=== PATIENT | male | born 1995 | race Two or more races ===

== ENCOUNTER 2024-08-19 20:11 | Inpatient (IN) | payer OTHER ==
[2024-08-19 22:03] VITALS: BMI 24.0
[2024-08-19] MEDS ORDERED: IBUPROFEN 400 MG TABLET (FP) PO PRN (22:31)
[2024-08-19] MEDS ORDERED: MAGNESIUM HYDROX 2400MG/30ML ORAL SUSPENSION 30 ML CUP PO PRN (22:31)
[2024-08-19] MEDS ORDERED: POLYETHYLENE GLYCOL (HEALTHYLAX) 3350 17 GM PACKET PO PRN (22:31)
[2024-08-19] MEDS ORDERED: hydrOXYzine PAMOATE 25 MG CAPSULE (FP) PO PRN (22:31)
[2024-08-19] MEDS ORDERED: BENZONATATE 200 MG CAPSULE PO PRN (22:31)
[2024-08-19] MEDS ORDERED: BENZOCAINE/MENTHOL (CHLORASEPTIC ) LOZENGE MM PRN (22:31)
[2024-08-19] MEDS ORDERED: MAG HYDROX/AL HYDROX/SIMETH 30 ML UNIT-DOSE CUP PO PRN (22:31)
[2024-08-19] MEDS ORDERED: ACETAMINOPHEN 325 MG TABLET (FP) PO PRN (22:31)
[2024-08-19] MEDS ORDERED: guaiFENesin 600 MG TABLET.ER (FP) PO PRN (22:31)
[2024-08-19] MEDS ORDERED: LOPERAMIDE HCL 2 MG CAPSULE PO PRN (22:31)
[2024-08-20] MEDS ORDERED: MELATONIN 5 MG TABLETS ONE (00:25)
[2024-08-20] MEDS: MELATONIN 5 MG TABLETS PO SCH (00:25)
[2024-08-20] MEDS: IBUPROFEN 600 MG TABLET (FP) PO PRN (10:30)
[2024-08-20] MEDS: PRENATAL VITAMINS W/ FOLIC ACID TABLET (FP) PO SCH (10:31)
[2024-08-20] MEDS: TUBERCULIN PPD 5 TU/0.1ML SYRINGE (IN PATIENT USE ONLY) ID ONE (10:31)
[2024-08-20 10:58] VITALS: BP 134/82; PULSE 65; RESP 18; TEMP 97.8
[2024-08-20] MEDS ORDERED: AMOX TR/POT CLAV 875MG/125MG TABLETS (FP) PO SCH (11:15)
[2024-08-20 11:28] LABS: HEMATOCRIT 46.1 % (35.4-49); HEMOGLOBIN 15.7 GM/dL (11.7-16.9); MCH 28.6 pg (25.7-33.7); MEAN CELL VOLUME 84.1 fl (80-96); MEAN PLT VOLUME 7.6 fl (7.5-11.1); PLATELET COUNT 286 10^3/uL (134-434); RBC 5.48 M/mm3 (4.00-5.60); RDW 13.8 % (11.9-15.9); WHITE BLOOD COUNT 4.3 K/mm3 (4.0-10.0)
[2024-08-20 11:33] LABS: CHLORIDE 107 mmol/L (98-107); POTASSIUM 4.1 mmol/L (3.5-5.1); SODIUM 139 mmol/L (136-145)
[2024-08-20 11:42] LABS: CALCIUM 8.7 mg/dL (8.5-10.1)
[2024-08-20 11:43] LABS: ALBUMIN 3.5 g/dl (3.4-5.0); ANION GAP 4 mmol/L (4-13); BLOOD UREA NITROGEN 13.6 mg/dL (7-18); CO2 28 mmol/L (21-32); GLUCOSE,RANDOM 103 mg/dL (74-106)
[2024-08-20 11:46] LABS: SGPT/ALT 23 U/L (13-61)
[2024-08-20 11:47] LABS: BILIRUBIN,TOTAL 0.7 mg/dL (0.2-1)
[2024-08-20 11:48] LABS: SGOT/AST 32 U/L (15-37); TOT PROT 6.5 g/dl (6.4-8.2)
[2024-08-20 11:49] LABS: ALK PHOS 61 U/L (45-117)
[2024-08-20 11:57] LABS: SYPHILIS W/ RPR CONF NON-REACTIVE (NONREACTIVE)
[2024-08-20] MEDS ORDERED: THIAMINE 100 MG TABLET PO SCH (22:00)
== END 2024-08-20 11:02 | disposition short-term general hospital (02) | DRG 772 ==
LOC: YASAS 20:11 → Y3NR 23:29
PROVIDERS: ADMIT Allergy & Immunology; ATTEND Psychiatry & Neurology Pain Medicine
PROC: HZ42ZZZ Group Counseling for Substance Abuse Treatment, Cognitive-Behavioral (ICD-10-PCS; principal; 2024-08-19)
DX: F18.288 Inhalant dependence with other inhalant-induced disorder (principal); F12.20 Cannabis dependence, uncomplicated; Z59.02 Unsheltered homelessness; S05.8X1D Other injuries of right eye and orbit, subsequent encounter; Y04.8XXD Assault by other bodily force, subsequent encounter
CPT/HCPCS: 36415; 80053; 80305; 80307; 85027; 86780; 86803; 87811; 93005; 93010